=== PATIENT | female | born 1980 | race Caucasian/White ===

== ENCOUNTER 2018-01-11 10:37 | Emergency (ER) | payer OTHER, MEDICAID ==
[~2018-01-11] VITALS: Ht 165.1 cm; Wt 79.4 kg
[2018-01-11] MEDS ORDERED: BACTRIM DS TAB1 EACH PO (11:59)
[2018-01-11] MEDS ORDERED: IBUPROFEN 800800 M1 PO (11:59)
[2018-01-11] MEDS ORDERED: KEFLEX500 M1 PO (12:00)
[2018-01-11 12:11] VITALS: BP 126/78
== END 2018-01-11 12:12 | disposition home or self-care (01) ==
LOC: M.ERS 10:37
DX: L02.415 Cutaneous abscess of right lower limb (principal)

== ENCOUNTER 2018-04-11 18:12 | Emergency (ER) | payer OTHER, MEDICAID ==
[~2018-04-11] VITALS: Ht 165.1 cm; Wt 83.9 kg
[~2018-04-11 18:12] MED LIST: BACTRIM DS TAB1 EACH PO; IBUPROFEN 800800 M1 PO; KEFLEX500 M1 PO
[2018-04-11] MEDS ORDERED: KEFLEX500 M1 PO (18:40)
[2018-04-11 18:47] VITALS: BP 126/69
== END 2018-04-11 18:48 | disposition home or self-care (01) ==
LOC: M.ERS 18:12
DX: J34.0 Abscess, furuncle and carbuncle of nose (principal); J45.909 Unspecified asthma, uncomplicated